=== PATIENT | female | born 1955 | race Caucasian/White ===

== ENCOUNTER 2016-07-16 23:07 | Emergency (ER) | payer BC ==
[2016-07-16 23:16] VITALS: BP 146/70
--- NOTE | 2016-07-16 23:21 | EDM.PDOC ---
ED HPI GENERAL MEDICAL PROBLEM - General Chief Complaint: General Stated Complaint: PT HAS RASH ON STOMACH Time Seen by Provider: 07/16/16 23:18 - History of Present Illness INITIAL COMMENTS - FREE TEXT/NARRATIVE: HISTORY AND PHYSICAL: History of present illness: Patient 7-year-old female presents with a concern of evaluation for recent tick bite in which she has a target lesion where she was bitten with some myalgias she denies fever chills neck pain headache nausea vomiting or other concern. Review of systems: As per history of present illness and below otherwise all systems reviewed and negative. Past medical history: As per history of present illness and as reviewed below otherwise noncontributory. Surgical history: As per history of present illness and as reviewed below otherwise noncontributory. Social history: No reported history of drug or alcohol abuse. Family history: As per history of present illness and as reviewed below otherwise noncontributory. Physical exam: HEENT: Atraumatic, normocephalic, pupils reactive, negative for conjunctival pallor or scleral icterus, mucous membranes moist, throat clear, neck supple, nontender, trachea midline. Lungs: Clear to auscultation, breath sounds equal bilaterally, chest nontender. Heart: S1S2, regular, negative for clicks, rubs, or JVD. Abdomen: Soft, nondistended, nontender. Negative for masses or hepatosplenomegaly. Negative for costovertebral tenderness. Patient has a target type lesion noted to her left flank where the tick was removed. Pelvis: Stable nontender. Genitourinary: Deferred. Rectal: Deferred. Extremities: Atraumatic, negative for cords or calf pain. Neurovascular unremarkable. Neuro: Awake, alert, oriented. Cranial nerves II through XII unremarkable. Cerebellum unremarkable. Motor and sensory unremarkable throughout. Exam nonfocal. Diagnostics: Lyme titer Therapeutics: None Impression: #1 observation status post tick bite #2 rule out Lyme disease Definitive disposition and diagnosis as appropriate pending reevaluation and review of above. - Related Data Allergies Allergy/AdvReac Type Severity Reaction Status Date / Time codeine Allergy Nausea Verified 07/16/16 23:11 morphine Allergy Nausea Verified 07/16/16 23:11 Penicillins Allergy Rash Verified 07/31/15 10:01 Home Meds: Home Meds FLUoxetine HCl [Fluoxetine] 20 mg PO DAILY 07/31/15 [History] Hydrochlorothiazide 25 mg PO DAILY 07/31/15 [History] Levothyroxine [Synthroid] 50 mcg PO ACBREAKFAST 07/31/15 [History] Lisinopril [Zestril] 10 mg PO DAILY 07/31/15 [History] Metoprolol Succinate [Toprol XL] 50 mg PO DAILY 07/31/15 [History] Simvastatin [Zocor] 20 mg PO DAILY 07/31/15 [History] Past Medical History Cardiovascular History: Reports: High Cholesterol, Hypertension Respiratory History: Reports: Other (See Below) Other Respiratory History: pneumonia Psychiatric History: Reports: PTSD Endocrine/Metabolic History: Reports: Hypothyroidism - Past Surgical History Cardiovascular Surgical History: Reports: None Social & Family History - Family History Family Medical History: Noncontributory - Tobacco Use Smoking Status *Q: Never Smoker - Recreational Drug Use Recreational Drug Use: No ED ROS GENERAL - Review of Systems Review Of Systems: ROS reveals no pertinent complaints other than HPI. ED EXAM, GENERAL - Physical Exam Exam: See Below (See dictation) Course - Vital Signs Text/Narrative:: I discussed with patient the nature of the rash as well as her circumstances patient is adamant regarding empiric treatment she does agree to Lyme titers she does agree to follow-up with private medical doctor. Last Recorded V/S: Last Vital Signs Temp 37.4 C 07/16/16 23:13 Pulse 75 07/16/16 23:13 Resp 16 07/16/16 23:13 BP 146/70 H 07/16/16 23:13 Pulse Ox 96 07/16/16 23:13 Departure - Departure Time of Disposition: 23:21 Disposition: Home, Self-Care 01 Condition: good Clinical Impression: Tick bite - Discharge Information Forms: ED Department Discharge Additional Instructions: The following information is given to patients seen in the emergency department who are being discharged to home. This information is to outline your options for follow-up care. We provide all patients seen in our emergency department with a follow-up referral. The need for follow-up, as well as the timing and circumstances, are variable depending upon the specifics of your emergency department visit. If you don't have a primary care physician on staff, we will provide you with a referral. We always advise you to contact your personal physician following an emergency department visit to inform them of the circumstance of the visit and for follow-up with them and/or the need for any referrals to a consulting specialist. The emergency department will also refer you to a specialist when appropriate. This referral assures that you have the opportunity for followup care with a specialist. All of these measure are taken in an effort to provide you with optimal care, which includes your followup. Under all circumstances we always encourage you to contact your private physician who remains a resource for coordinating your care. When calling for followup care, please make the office aware that this follow-up is from your recent emergency room visit. If for any reason you are refused follow-up, please contact the [facility] emergency department at and asked to speak to the emergency department charge nurse. Doxycycline as prescribed follow-up primary medical doctor 1-2 days return as needed as discussed
== END 2016-07-16 23:40 | disposition home or self-care (01) ==
LOC: MW.ED 23:07
DX: S30.861A Insect bite (nonvenomous) of abdominal wall, initial encounter (principal); W57.XXXA Bitten or stung by nonvenomous insect and other nonvenomous arthropods, initial encounter; I10 Essential (primary) hypertension; E78.00 Pure hypercholesterolemia, unspecified; E03.9 Hypothyroidism, unspecified; Z79.899 Other long term (current) drug therapy; Z88.0 Allergy status to penicillin; Z88.5 Allergy status to narcotic agent
CPT/HCPCS: 36415; 86618; 99281; 99282

== ENCOUNTER 2016-10-08 06:27 | Day surgery (SDC) | payer BC ==
--- NOTE | 2016-10-08 06:59 | PCM.PREANE ---
Preanesthetic Assessment - Anesthesia/Transfusion/Family Hx Anesthesia History: Prior Anesthesia Without Reaction Family History of Anesthesia Reaction: No Transfusion History: No Prior Transfusion(s) Intubation History: Unknown - Review of Systems General: No Symptoms Pulmonary: No Symptoms Cardiovascular: No Symptoms Gastrointestinal: No Symptoms Neurological: No Symptoms Other: Reports: None - Physical Assessment Height: 1.68 m Weight: 75.296 kg ASA Class: 3 Mental Status: Alert & Oriented x3 Airway Class: Mallampati = 2 Dentition: Reports: Partial (upper front) Thyro-Mental Finger Breadths: 2 Mouth Opening Finger Breadths: 2 ROM/Head Extension: Full Lungs: Clear to Auscultation, Normal Respiratory Effort Cardiovascular: Regular Rate, Irregular Rhythm (irregularly irregular) - Allergies Allergies/Adverse Reactions: Allergies Allergy/AdvReac Type Severity Reaction Status Date / Time codeine Allergy Nausea Verified 07/16/16 23:11 morphine Allergy Nausea Verified 07/16/16 23:11 Penicillins Allergy Rash Verified 07/31/15 10:01 - Blood Blood Available: No - Anesthesia Plan Pre-Op Medication Ordered: None - Acknowledgements Anesthesia Type Planned: MAC Pt an Appropriate Candidate for the Planned Anesthesia: Yes Alternatives and Risks of Anesthesia Discussed w Pt/Guardian: Yes Pt/Guardian Understands and Agrees with Anesthesia Plan: Yes PreAnesthesia Questionnaire HEENT History: Reports: Other (See Below) Other HEENT History: wears glasses, has top partial Cardiovascular History: Reports: Arrhythmia, High Cholesterol, Hypertension Respiratory History: Genitourinary History: Reports: None 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: Musculoskeletal History: Reports: Osteoporosis Psychiatric History: Reports: Anxiety, Depression, PTSD, Other (See Below) (h/o closed injury about 7 years ago with some memory loss) Endocrine/Metabolic History: Reports: Hypothyroidism - Past Surgical History Head Surgeries/Procedures: Reports: None Cardiovascular Surgical History: Reports: None Female Surgical History: Reports: Breast Biopsy (left breast lumpectomy) Musculoskeletal Surgical History: Reports: Carpal Tunnel (right about 7 years ago), Shoulder Surgery Other Musculoskeletal Surgeries/Procedures:: left rotator cuff repair - SUBSTANCE USE Smoking Status *Q: Never Smoker Recreational Drug Use History: No - HOME MEDS Home Medications: Home Meds FLUoxetine HCl [Fluoxetine] 20 mg PO DAILY 07/31/15 [History] Hydrochlorothiazide 25 mg PO DAILY 06/21/16 [History] Levothyroxine [Synthroid] 50 mcg PO ACBREAKFAST 07/31/15 [History] Metoprolol Succinate [Toprol XL] 50 mg PO DAILY 07/31/15 [History] Simvastatin [Zocor] 20 mg PO BEDTIME 07/31/15 [History] Aspirin [[place] Aspirin] 81 mg PO DAILY 10/01/16 [History] Losartan Potassium 50 mg PO DAILY 10/01/16 [History] - CURRENT (IN HOUSE) MEDS Current Meds: Current Medications Hydrocodone Bitart/Acetaminophen (Whitman 325-5 Mg) 1 tab PO Q4H PRN PRN Reason: Pain Bupivacaine HCl/Epinephrine Bitart (Marcaine 0.25%/Epinephrine 1:200,000) 10 ml INJECT ONETIME ONE Stop: 10/08/16 07:01 Clindamycin Phosphate 600 mg/ (Premix) 50 mls @ 150 mls/hr IV ONETIME ONE Stop: 10/08/16 07:49 Lactated Ringer's (Ringers, Lactated) 1,000 mls @ 125 mls/hr IV ASDIRECTED [facility]
[2016-10-08] MEDS ORDERED: Bupivacaine 0.25%/EPINEPHrine 1:200,000 10 ML SDV INJECT ONE (07:00)
[2016-10-08] MEDS ORDERED: Bupivacaine 0.25%/EPINEPHrine 1:200,000 10 ML SDV ONE (07:10)
[2016-10-08] MEDS ORDERED: Propofol 200 MG/20 ML SDV ONE (07:26)
[2016-10-08] MEDS ORDERED: fentaNYL 100 MCG/2 ML SDV ONE (07:26)
[2016-10-08] MEDS ORDERED: Ondansetron 4 MG/2 ML SDV ONE (07:26)
[2016-10-08] MEDS ORDERED: Midazolam 1 MG/ML 2 ML SDV ONE (07:26)
[2016-10-08] MEDS ORDERED: Dexamethasone 4 MG/ML 5 ML MDV ONE (07:27)
[2016-10-08] MEDS ORDERED: Clindamycin Phosphate in D5W 600 MG in Premix Bag 1 BAG IV ONE ×2 (07:30)
[2016-10-08] MEDS ORDERED: Lactated Ringers 1,000 ML IV SCH (07:30)
[2016-10-08] MEDS ORDERED: Acetaminophen/HYDROcodone 325-5 MG Tab PO PRN (08:29)
[2016-10-08] MEDS ORDERED: ceFAZolin 1 GM Vial ONE (08:52)
--- NOTE | 2016-10-08 09:04 | PCM48HPAN ---
Post Anesthesia Note - EVALUATION WITHIN 48HRS OF ANESTHETIC Vital Signs in Normal Range: Yes Patient Participated in Evaluation: Yes Respiratory Function Stable: Yes Airway Patent: Yes Cardiovascular Function Stable: Yes Hydration Status Stable: Yes Pain Control Satisfactory: Yes Nausea and Vomiting Control Satisfactory: Yes Mental Status Recovered: Yes - COMMENTS/OBSERVATIONS Free Text/Narrative:: no anesthesia problems, patient skipped recovery room phase of postoperative care.
[2016-10-08 09:48] VITALS: BP 116/54
--- NOTE | 2016-10-08 10:50 | PCM.OPNOTE ---
- General Post-Op/Procedure Note Date of Surgery/Procedure: 10/08/16 Operative Procedure(s): left carpal tunnel release Pre Op Diagnosis: left carpal tunnel syndrome Post-Op Diagnosis: Same Anesthesia Technique: Local, MAC Primary Surgeon: Devi Edmonds Title Search Manager: Gavi Fagan Complications: None Condition: Good Free Text/Narrative:: Intake & Output 10/07/16 10/08/16 10/08/16 23:59 07:59 15:59 Intake Total 400 Balance 400
--- NOTE | 2016-10-10 21:01 | OR ---
SURGEON: ÁNGEL RASCON MD DATE OF PROCEDURE: 10/08/2016 PREOPERATIVE DIAGNOSIS: Left carpal tunnel syndrome. POSTOPERATIVE DIAGNOSIS: Left carpal tunnel syndrome. PROCEDURE: Left carpal tunnel release. ANESTHESIA: Local MAC. TEST ENG: Gavi Fagan. INDICATIONS: Ms. Rothman is a 61-year-old female with left carpal tunnel syndrome. Risks and benefits of release were discussed with her and she was in agreement to proceed. Risks were including, but not limited to, bleeding, infection, damage to underlying or overlying structures, possible need for future interventions and possible scarring. PROCEDURE IN DETAIL: After informed consent was obtained and placed on the chart, the patient was brought to the operating theater and laid in the supine position. After adequate local MAC anesthetic was obtained, the area was prepped and draped, a time-out was completed to confirm side and site. Once adequately confirmed, the arm was exsanguinated and tourniquet was inflated to 200 mmHg after injection of local anesthetic. Once adequately prepped, draped, and tourniquet was up, 15 blade was then used to dissect through the transverse carpal ligament and skin overlying using a 15 blade. Once adequately dissected down to the ligament and the ligament was reached. The Littler scissors were used to dissect the remaining ligament distally and proximally under direct visualization. The area was irrigated and closed using a 5-0 nylon stitch in a horizontal mattress fashion. The wound was dressed with Xeroform, fluffs, and a Kerlix gauze dressing and tourniquet was deflated after 6 minutes. All counts and needles were correct at the end the case. The patient was dressed with an Jay Jay wrap. FOLLOWUP INSTRUCTIONS: The patient will see us in clinic in 10 days sooner if any problems, questions, or concerns. She was given a prescription for pain control. HEGGTHE / MODL /[id number]
== END 2016-10-08 09:14 | disposition home or self-care (01) ==
LOC: MW.SDS 06:27
PROVIDERS: ATTEND Plastic Surgery
DX: G56.02 Carpal tunnel syndrome, left upper limb (principal); F32.9 Major depressive disorder, single episode, unspecified; I10 Essential (primary) hypertension; E03.9 Hypothyroidism, unspecified; E78.00 Pure hypercholesterolemia, unspecified; F41.9 Anxiety disorder, unspecified; M81.0 Age-related osteoporosis without current pathological fracture; Z88.0 Allergy status to penicillin; Z88.5 Allergy status to narcotic agent; Z79.82 Long term (current) use of aspirin; Z79.899 Other long term (current) drug therapy; Z98.890 Other specified postprocedural states
CPT/HCPCS: 64721; J0690; J1100; J2250; J2405; J3010; J7120; 01810; J2704

== ENCOUNTER 2017-07-03 06:48 | Emergency (ER) | payer BC ==
[2017-07-03 07:13] VITALS: BP 125/66
--- NOTE | 2017-07-03 07:13 | EDM.PDOC ---
ED HPI GENERAL MEDICAL PROBLEM - General Chief Complaint: Skin Complaint Stated Complaint: RASH Time Seen by Provider: 07/03/17 06:59 - History of Present Illness INITIAL COMMENTS - FREE TEXT/NARRATIVE: HISTORY AND PHYSICAL: History of present illness: The patient is a 62-year-old female with a history of hypertension hypercholesterolemia hypothyroidism who presents to the ED with 4 days of a rash to her for head and she is concerned about. She says that it is itchy and lema but is not specifically painful and it is only located on her for head and no place else on her body. She thought when she woke this morning she might of seen a few areas on her cheeks bilaterally but she is not sure. She has been using [id number]-feooacy hydrocortisone. Patient has no systemic complaints over the last 4 days of fevers chills chest pain shortness of breath sore throat and has no facial swelling no lip or tongue swelling no difficulty swallowing or breathing. Patient expressed to triage that she was concerned about shingles but she tells me she has not noticed any blisters or vesicles to the rash over the last 4 days. Patient has no eye itching complaints of redness or drainage. The patient states that she works at [employer] and touches many objects that are dirty and have a lot of particulate matter and dust. Review of systems: As per history of present illness and below otherwise all systems reviewed and negative. Past medical history: As per history of present illness and as reviewed below otherwise noncontributory. Surgical history: As per history of present illness and as reviewed below otherwise noncontributory. Social history: No reported history of drug or alcohol abuse. Family history: As per history of present illness and as reviewed below otherwise noncontributory. Physical exam: General: Well-developed well-nourished female who is nontoxic and vital signs are as noted. She has no facial swelling difficulty speaking or hoarse voice. HEENT: Atraumatic, normocephalic, pupils reactive, negative for conjunctival pallor or scleral icterus, sclerae are not injected mucous membranes moist, throat clear, neck supple, nontender, trachea midline. There is no lip or tongue swelling or oropharyngeal swelling and no facial swelling. Please see below for skin exam. Lungs: Clear to auscultation, breath sounds equal bilaterally, chest nontender. No wheezing or stridor Heart: S1S2, regular rate and rhythm no overt murmurs Abdomen: Soft, nondistended, nontender. NABS. Pelvis: Deferred Genitourinary: Deferred. Rectal: Deferred. Extremities: Atraumatic, negative for cords or calf pain. Neurovascular unremarkable. Neuro: Awake, alert, oriented. Cranial nerves II through XII unremarkable. Cerebellum unremarkable. Motor and sensory unremarkable throughout. Exam nonfocal. Skin: At the for head bilaterally and a upside down triangle like distribution there is a pinkish red maculopapular rash seen without vesicles or discrete demarcation. This does not extend past the hairline nor the eyebrows. I do notice one or 2 small red macules on the cheeks but there is a different look to this area due to the possibility of lesions. There are no vesicles anywhere on the face and the remainder of the face is without any rash. The neck and upper chest and upper back as well as upper extremities are without rashes and the patient does not complain of rashes elsewhere. Diagnostics: [] Therapeutics: [] I discussed with the patient concerned about shingles and as this is a bilateral for head rash without vesicular component after 4 days I told her it is unlikely that this is shingles but I did caution her to keep monitoring the rash for any appearance of vesicles or change in its character or distribution. Impression: Contact dermatitis of face Definitive disposition and diagnosis as appropriate pending reevaluation and review of above. forehead Pain Score (Numeric/FACES): 2 - Related Data Allergies Allergy/AdvReac Type Severity Reaction Status Date / Time codeine Allergy Nausea Verified 07/03/17 06:55 morphine Allergy Nausea Verified 07/03/17 06:55 Penicillins Allergy Rash Verified 07/03/17 06:55 Home Meds: Home Meds FLUoxetine HCl [Fluoxetine] 20 mg PO DAILY 07/31/15 [History] Hydrochlorothiazide 25 mg PO DAILY 07/31/15 [History] Levothyroxine [Synthroid] 50 mcg PO ACBREAKFAST 07/31/15 [History] Metoprolol Succinate [Toprol XL] 50 mg PO DAILY 07/31/15 [History] Simvastatin [Zocor] 20 mg PO BEDTIME 07/31/15 [History] Aspirin [[place] Aspirin] 81 mg PO DAILY 10/01/16 [History] Losartan Potassium 50 mg PO DAILY 10/01/16 [History] Past Medical History HEENT History: Reports: Other (See Below) Other HEENT History: wears glasses, has top partial Cardiovascular History: Reports: Arrhythmia, High Cholesterol, Hypertension Respiratory History: Reports: None Gastrointestinal History: Reports: None Genitourinary History: Reports: None 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: Musculoskeletal History: Reports: Osteoporosis Neurological History: Reports: None Psychiatric History: Reports: Anxiety, Depression, PTSD, Other (See Below) Endocrine/Metabolic History: Reports: Hypothyroidism Hematologic History: Reports: None Immunologic History: Reports: None Oncologic (Cancer) History: Reports: None Dermatologic History: Reports: None - Infectious Disease History Infectious Disease History: Reports: Chicken Pox - Past Surgical History Head Surgeries/Procedures: Reports: None Cardiovascular Surgical History: Reports: None Respiratory Surgical History: Reports: None GI Surgical History: Reports: None Female Surgical History: Reports: Breast Biopsy Endocrine Surgical History: Reports: None Neurological Surgical History: Reports: None Musculoskeletal Surgical History: Reports: Carpal Tunnel, Shoulder Surgery Other Musculoskeletal Surgeries/Procedures:: left rotator cuff repair Oncologic Surgical History: Reports: None Dermatological Surgical History: Reports: None Social & Family History - Family History Family Medical History: Noncontributory - Tobacco Use Smoking Status *Q: Never Smoker Second Hand Smoke Exposure: No - Caffeine Use Caffeine Use: Reports: Soda - Recreational Drug Use Recreational Drug Use: No ED ROS GENERAL - Review of Systems Review Of Systems: ROS reveals no pertinent complaints other than HPI. ED EXAM, SKIN/RASH Exam: See Below (See dictation) Course - Vital Signs Last Recorded V/S: Last Vital Signs Temp 36.1 C 07/03/17 06:57 Pulse 60 07/03/17 06:57 Resp 18 07/03/17 06:57 BP 125/66 07/03/17 06:57 Pulse Ox 96 07/03/17 06:57 Departure - Departure Time of Disposition: 07:12 Disposition: Home, Self-Care 01 Condition: Good Clinical Impression: Contact dermatitis Qualifiers: Contact dermatitis type: unspecified Contact dermatitis trigger: unspecified trigger Qualified Code(s): L25.9 - Unspecified contact dermatitis, unspecified cause - Discharge Information Referrals: PCP,None [Primary Care Provider] - Additional Instructions: The following information is given to patients seen in the emergency department who are being discharged to home. This information is to outline your options for follow-up care. We provide all patients seen in our emergency department with a follow-up referral. The need for follow-up, as well as the timing and circumstances, are variable depending upon the specifics of your emergency department visit. If you don't have a primary care physician on staff, we will provide you with a referral. We always advise you to contact your personal physician following an emergency department visit to inform them of the circumstance of the visit and for follow-up with them and/or the need for any referrals to a consulting specialist. The emergency department will also refer you to a specialist when appropriate. This referral assures that you have the opportunity for followup care with a specialist. All of these measure are taken in an effort to provide you with optimal care, which includes your followup. Under all circumstances we always encourage you to contact your private physician who remains a resource for coordinating your care. When calling for followup care, please make the office aware that this follow-up is from your recent emergency room visit. If for any reason you are refused follow-up, please contact the [facility] emergency department at and ask to speak to the emergency department charge nurse. [facility] Primary care- Internal Medicine and Family [address] [address] Please cleanse her face with mild soap and water and use the [id number] hydrocortisone as you choose twice a day. Please use [id number] antihistamines such as Lydia, Claritin, or Benadryl keeping in mind that Benadryl may make you drowsy so only take at home. Please use the Medrol Dosepak as prescribed. Please contact her provider in our clinic and schedule a follow-up appointment and continue to monitor the rash and return to ER as needed as discussed
== END 2017-07-03 07:29 | disposition home or self-care (01) ==
LOC: MW.ED 06:48
DX: L25.9 Unspecified contact dermatitis, unspecified cause (principal); I10 Essential (primary) hypertension; E03.9 Hypothyroidism, unspecified; E78.00 Pure hypercholesterolemia, unspecified; Z88.5 Allergy status to narcotic agent; Z88.0 Allergy status to penicillin; Z79.82 Long term (current) use of aspirin; Z79.899 Other long term (current) drug therapy
CPT/HCPCS: 99282

== ENCOUNTER 2018-03-18 08:26 | Emergency (ER) | payer OTHER, BC ==
[2018-03-18 08:47] VITALS: BP 128/55
--- NOTE | 2018-03-18 08:55 | EDM.PDOC ---
ED HPI GENERAL MEDICAL PROBLEM - General Chief Complaint: Back Pain or Injury Stated Complaint: BACK INJURY Time Seen by Provider: 03/18/18 08:34 Source of Information: Reports: Patient History Limitations: Reports: No Limitations - History of Present Illness INITIAL COMMENTS - FREE TEXT/NARRATIVE: History of present illness: []Patient slipped on the ice week ago and hit her right back on the step up to a trailer. She had no loss consciousness and symptoms have improved markedly but she is concerned that she may have a more severe injury. Patient has a bruise on her right flank and states she has some neck stiffness that she states is better now. Denies any numbness or tingling, urinary incontinence, chest pain, shortness of breath or headache. Review of systems: As per history of present illness and below otherwise all systems reviewed and negative. Past medical history: As per history of present illness and as reviewed below otherwise noncontributory. Surgical history: As per history of present illness and as reviewed below otherwise noncontributory. Social history: No reported history of drug or alcohol abuse. Family history: As per history of present illness and as reviewed below otherwise noncontributory. Physical exam: General: Well developed, well nourished in NAD HEENT: Atraumatic, normocephalic, pupils reactive, negative for conjunctival pallor or scleral icterus, mucous membranes moist, throat clear, neck supple, nontender, trachea midline. Lungs: Clear to auscultation, breath sounds equal bilaterally, chest nontender. Heart: S1S2, regular, negative for clicks, rubs, or JVD. Abdomen: NABS, Soft, nondistended, nontender. Negative for masses or hepatosplenomegaly. Negative for costovertebral tenderness. Ecchymosis of her right flank Pelvis: Stable nontender. Genitourinary: Deferred. Rectal: Deferred. Extremities: Atraumatic, negative for cords or calf pain. Neurovascular unremarkable. Neuro: Awake, alert, oriented. Cranial nerves II through XII unremarkable. Cerebellum unremarkable. Motor and sensory unremarkable throughout. Exam nonfocal. Skin:warm and dry Diagnostics: UA negative for blood Therapeutics: Declined ED Course: Unremarkable Impression: Fall, flank contusion, cervical strain Prescriptions: None Plan: Tylenol or ibuprofen for pain follow-up primary care as needed Definitive disposition and diagnosis as appropriate pending reevaluation and review of above. Right Middle Back Pain Score (Numeric/FACES): 6 - Related Data Allergies Allergy/AdvReac Type Severity Reaction Status Date / Time codeine Allergy Nausea Verified 03/18/18 08:36 morphine Allergy Nausea Verified 03/18/18 08:36 Penicillins Allergy Rash Verified 03/18/18 08:36 Home Meds: Home Meds FLUoxetine HCl [Fluoxetine] 1 tab PO DAILY 07/31/15 [History] Hydrochlorothiazide 1 tab PO DAILY 07/31/15 [History] Levothyroxine [Synthroid] 1 tab PO ACBREAKFAST 07/31/15 [History] Metoprolol Succinate [Toprol XL] 1 tab PO DAILY 07/31/15 [History] Simvastatin [Zocor] 1 tab PO BEDTIME 07/31/15 [History] Aspirin [[place] Aspirin EC] 1 tab PO DAILY 10/01/16 [History] Losartan Potassium 1 tab PO DAILY 10/01/16 [History] Past Medical History HEENT History: Reports: Other (See Below) Other HEENT History: wears glasses, Full Dentures Cardiovascular History: Reports: Arrhythmia, High Cholesterol, Hypertension Respiratory History: Reports: None Gastrointestinal History: Reports: None Genitourinary History: Reports: None 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: Musculoskeletal History: Reports: Osteoporosis Neurological History: Reports: None Psychiatric History: Reports: Anxiety, Depression, PTSD, Other (See Below) Endocrine/Metabolic History: Reports: Hypothyroidism Hematologic History: Reports: None Immunologic History: Reports: None Oncologic (Cancer) History: Reports: None Dermatologic History: Reports: None - Infectious Disease History Infectious Disease History: Reports: Chicken Pox, Measles, Mumps - Past Surgical History Head Surgeries/Procedures: Reports: None Cardiovascular Surgical History: Reports: None Respiratory Surgical History: Reports: None GI Surgical History: Reports: None Female Surgical History: Reports: Breast Biopsy Endocrine Surgical History: Reports: None Neurological Surgical History: Reports: None Musculoskeletal Surgical History: Reports: Carpal Tunnel, Shoulder Surgery Other Musculoskeletal Surgeries/Procedures:: left rotator cuff repair Oncologic Surgical History: Reports: None Dermatological Surgical History: Reports: None Social & Family History - Family History Family Medical History: Noncontributory - Tobacco Use Smoking Status *Q: Never Smoker Second Hand Smoke Exposure: Yes - Caffeine Use Caffeine Use: Reports: Soda, Tea - Recreational Drug Use Recreational Drug Use: No ED ROS GENERAL - Review of Systems Review Of Systems: ROS reveals no pertinent complaints other than HPI. ED EXAM,LOWER BACK PAIN/INJURY - Physical Exam Exam: See Below (See history of present illness) Course - Vital Signs Last Recorded V/S: Last Vital Signs Temp 97.1 F 03/18/18 08:39 Pulse 64 03/18/18 08:39 Resp 14 03/18/18 08:39 BP 128/55 L 03/18/18 08:39 Pulse Ox 97 03/18/18 08:39 - Orders/Labs/Meds Labs: Laboratory Tests 03/18/18 Range/Units 08:50 Urine Color YELLOW Urine Appearance CLEAR Urine pH 5.0 (5.0-8.0) Ur Specific [place] 1.010 (1.001-1.035) Urine Protein NEGATIVE (NEGATIVE) mg/dL Urine Glucose (UA) NEGATIVE (NEGATIVE) mg/dL Urine Ketones NEGATIVE (NEGATIVE) mg/dL Urine Occult Blood NEGATIVE (NEGATIVE) Urine Nitrite NEGATIVE (NEGATIVE) Urine Bilirubin NEGATIVE (NEGATIVE) Urine Urobilinogen 0.2 (<2.0) EU/dL Ur Leukocyte Esterase NEGATIVE (NEGATIVE) Urine RBC NONE SEEN (0-2/HPF) Urine WBC RARE (0-5/HPF) Ur Epithelial Cells FEW (NONE-FEW) Urine Bacteria FEW (NEGATIVE) Departure - Departure Time of Disposition: 09:42 Disposition: Home, Self-Care 01 Condition: Good Clinical Impression: Fall Qualifiers: Encounter type: initial encounter Qualified Code(s): W19.XXXA - Unspecified fall, initial encounter Contusion, flank Qualifiers: Encounter type: initial encounter Qualified Code(s): S30.1XXA - Contusion of abdominal wall, initial encounter Cervical muscle strain Qualifiers: Encounter type: initial encounter Qualified Code(s): S16.1XXA - Strain of muscle, fascia and tendon at neck level, initial encounter - Discharge Information *PRESCRIPTION DRUG MONITORING PROGRAM REVIEWED*: No *COPY OF PRESCRIPTION DRUG MONITORING REPORT IN PATIENT ANUSHA: No Referrals: PCP,Unknown [Primary Care Provider] - Forms: ED Department Discharge Additional Instructions: The following information is given to patients seen in the emergency department who are being discharged to home. This information is to outline your options for follow-up care. We provide all patients seen in our emergency department with a follow-up referral. The need for follow-up, as well as the timing and circumstances, are variable depending upon the specifics of your emergency department visit. If you don't have a primary care physician on staff, we will provide you with a referral. We always advise you to contact your personal physician following an emergency department visit to inform them of the circumstance of the visit and for follow-up with them and/or the need for any referrals to a consulting specialist. The emergency department will also refer you to a specialist when appropriate. This referral assures that you have the opportunity for follow-up care with a specialist. All of these measure are taken in an effort to provide you with optimal care, which includes your follow-up. Under all circumstances we always encourage you to contact your private physician who remains a resource for coordinating your care. When calling for follow-up care, please make the office aware that this follow-up is from your recent emergency room visit. If for any reason you are refused follow-up, please contact the [facility] Emergency Department at and asked to speak to the emergency department charge nurse. [facility] [address] [place] [id number]
== END 2018-03-18 09:54 | disposition home or self-care (01) ==
LOC: MW.ED 08:26
DX: S16.1XXA Strain of muscle, fascia and tendon at neck level, initial encounter (principal); S30.1XXA Contusion of abdominal wall, initial encounter; I10 Essential (primary) hypertension; E78.00 Pure hypercholesterolemia, unspecified; F41.9 Anxiety disorder, unspecified; F32.9 Major depressive disorder, single episode, unspecified; Z79.82 Long term (current) use of aspirin; Z79.899 Other long term (current) drug therapy; Z88.5 Allergy status to narcotic agent; Z88.0 Allergy status to penicillin; W00.0XXA Fall on same level due to ice and snow, initial encounter
CPT/HCPCS: 81001; 99283

== ENCOUNTER 2018-10-11 07:04 | Observation (INO) | payer BC ==
[2018-10-11] MEDS: Sodium Chloride 0.9% 1,000 ML IV SCH ×3 (07:33→22:00)
--- NOTE | 2018-10-11 07:49 | EDM.PDOC ---
ED HPI GENERAL MEDICAL PROBLEM - General Chief Complaint: General Stated Complaint: PASSING OUT Time Seen by Provider: 10/11/18 07:20 - History of Present Illness INITIAL COMMENTS - FREE TEXT/NARRATIVE: HISTORY AND PHYSICAL: History of present illness: Patient's a 63-year-old white female history of hypertension who presents with a concern of near syncope she had multiple episodes this a.m. while she was at work she describes this as her vision becoming more "tunnel like" and that if she did grab something to support her so she would've passed out. She denies chest pain shortness breath diaphoresis nausea vomiting or palpitation she denies history of prior OK or CVA and states she is in generally good health she had one episode in the emergency department upon arrival Review of systems: As per history of present illness and below otherwise all systems reviewed and negative. Past medical history: As per history of present illness and as reviewed below otherwise noncontributory. Surgical history: As per history of present illness and as reviewed below otherwise noncontributory. Social history: No reported history of drug or alcohol abuse. Family history: As per history of present illness and as reviewed below otherwise noncontributory. Physical exam: HEENT: Atraumatic, normocephalic, pupils reactive, negative for conjunctival pallor or scleral icterus, mucous membranes moist, throat clear, neck supple, nontender, trachea midline. Lungs: Clear to auscultation, breath sounds equal bilaterally, chest nontender. Heart: S1S2, regular, negative for clicks, rubs, or JVD. Abdomen: Soft, nondistended, nontender. Negative for masses or hepatosplenomegaly. Negative for costovertebral tenderness. Pelvis: Stable nontender. Genitourinary: Deferred. Rectal: Deferred. Extremities: Atraumatic, negative for cords or calf pain. Neurovascular unremarkable. Neuro: Awake, alert, oriented. Cranial nerves II through XII unremarkable. Cerebellum unremarkable. Motor and sensory unremarkable throughout. Exam nonfocal. Diagnostics: CBC CMP troponin PT/INR chest x-ray EKG CT brain Therapeutics: IV O2 monitor Impression: #1 near syncope Definitive disposition and diagnosis as appropriate pending reevaluation and review of above. left foot Pain Score (Numeric/FACES): 4 - Related Data Allergies Allergy/AdvReac Type Severity Reaction Status Date / Time codeine Allergy Nausea Verified 03/18/18 08:36 morphine Allergy Nausea Verified 03/18/18 08:36 Penicillins Allergy Rash Verified 03/18/18 08:36 Home Meds: Home Meds FLUoxetine HCl [Fluoxetine] 1 tab PO DAILY 07/31/15 [History] Hydrochlorothiazide 1 tab PO DAILY 07/31/15 [History] Levothyroxine [Synthroid] 1 tab PO ACBREAKFAST 07/31/15 [History] Metoprolol Succinate [Toprol XL] 1 tab PO DAILY 07/31/15 [History] Simvastatin [Zocor] 1 tab PO BEDTIME 07/31/15 [History] Aspirin [[place] Aspirin EC] 1 tab PO DAILY 10/01/16 [History] Losartan Potassium 1 tab PO DAILY 10/01/16 [History] Past Medical History HEENT History: Reports: Other (See Below) Other HEENT History: wears glasses, Full Dentures Cardiovascular History: Reports: Arrhythmia, High Cholesterol, Hypertension Respiratory History: Reports: None Gastrointestinal History: Reports: None Genitourinary History: Reports: None [employer]IAN History: Reports: Musculoskeletal History: Reports: Osteoporosis Neurological History: Reports: None Psychiatric History: Reports: Anxiety, Depression, PTSD, Other (See Below) Endocrine/Metabolic History: Reports: Hypothyroidism Hematologic History: Reports: None Immunologic History: Reports: None Oncologic (Cancer) History: Reports: None Dermatologic History: Reports: None - Infectious Disease History Infectious Disease History: Reports: Chicken Pox - Past Surgical History Head Surgeries/Procedures: Reports: None Cardiovascular Surgical History: Reports: None Respiratory Surgical History: Reports: None GI Surgical History: Reports: None Female Surgical History: Reports: Breast Biopsy Endocrine Surgical History: Reports: None Neurological Surgical History: Reports: None Musculoskeletal Surgical History: Reports: Carpal Tunnel, Shoulder Surgery Other Musculoskeletal Surgeries/Procedures:: left rotator cuff repair Oncologic Surgical History: Reports: None Dermatological Surgical History: Reports: None Social & Family History - Family History Family Medical History: Noncontributory - Tobacco Use Smoking Status *Q: Never Smoker - Caffeine Use Caffeine Use: Reports: Soda, Tea - Recreational Drug Use Recreational Drug Use: No ED ROS GENERAL - Review of Systems Review Of Systems: ROS reveals no pertinent complaints other than HPI. ED EXAM, GENERAL - Physical Exam Exam: See Below (See dictation) Course - Vital Signs Last Recorded V/S: Last Vital Signs Temp 35.8 C 09/02/19 07:08 Pulse 55 L 10/11/18 08:14 Resp 15 10/11/18 08:14 BP 130/76 10/11/18 08:14 Pulse Ox 97 10/11/18 08:14 - Orders/Labs/Meds Orders: Active Orders 24 hr Category Date Time Status Cardiac Monitoring [RC] . DIRECTED Care 10/11/18 07:21 Active EKG Documentation Completion [RC] STAT Care 10/11/18 07:21 Active Pulse Oximetry [RC] ASDIRECTED Care 10/11/18 07:21 Active Head wo Cont [CT] Stat Exams 10/11/18 07:22 Taken Sodium Chloride 0.9% [Normal Saline] 1,000 ml Med 10/11/18 07:30 Active IV STAT Medication Orders Sodium Chloride (Normal Saline) 1,000 mls @ 125 mls/hr IV STAT JOANNA Last Admin: 10/11/18 07:33 Dose: 125 mls/hr Labs: Laboratory Tests 10/11/18 10/11/18 10/11/18 Range/Units 07:30 07:30 07:30 WBC 3.37 L (4.0-11.0) K/uL RBC 4.28 L (4.30-5.90) M/uL Hgb 12.3 (12.0-16.0) g/dL Hct 37.0 (36.0-46.0) % MCV 86.4 (80.0-98.0) fL MCH 28.7 (27.0-32.0) pg MCHC 33.2 (31.0-37.0) g/dL RDW Std Deviation 43.2 (28.0-62.0) fl RDW Coeff of Ezra 14 (11.0-15.0) % Plt Count 246 (150-400) K/uL MPV 10.30 (7.40-12.00) fL Neut % (Auto) 52.5 (48.0-80.0) % Lymph % (Auto) 31.8 (16.0-40.0) % [place] % (Auto) 10.4 (0.0-15.0) % Eos % (Auto) 4.7 (0.0-7.0) % Baso % (Auto) 0.6 (0.0-1.5) % Neut # (Auto) 1.8 (1.4-5.7) K/uL Lymph # (Auto) 1.1 (0.6-2.4) K/uL [place] # (Auto) 0.4 (0.0-0.8) K/uL Eos # (Auto) 0.2 (0.0-0.7) K/uL Baso # (Auto) 0.0 (0.0-0.1) K/uL Nucleated RBC % 0.0 /100WBC Nucleated RBCs # 0 K/uL INR 0.92 Sodium 140 (136-145) mmol/L Potassium 3.4 L (3.5-5.1) mmol/L Chloride 101 (98-107) mmol/L Carbon Dioxide 28.8 (21.0-32.0) mmol/L BUN 12 (7.0-18.0) mg/dL Creatinine 0.7 (0.6-1.0) mg/dL Est Cr Clr Drug Dosing 78.01 mL/min Estimated GFR (MDRD) > 60.0 ml/min Glucose 88 (74-106) mg/dL Calcium 9.2 (8.5-10.1) mg/dL Total Bilirubin 0.4 (0.2-1.0) mg/dL AST 15 (15-37) IU/L ALT 20 (14-63) IU/L Alkaline Phosphatase 86 (46-116) U/L Troponin I < 0.050 (0.000-0.056) ng/mL Total Protein 6.9 (6.4-8.2) g/dL Albumin 3.6 (3.4-5.0) g/dL Globulin 3.3 (2.6-4.0) g/dL Albumin/Globulin Ratio 1.1 (0.9-1.6) Urine Color Urine Appearance Urine pH (5.0-8.0) Ur Specific [place] (1.001-1.035) Urine Protein (NEGATIVE) mg/dL Urine Glucose (UA) (NEGATIVE) mg/dL Urine Ketones (NEGATIVE) mg/dL Urine Occult Blood (NEGATIVE) Urine Nitrite (NEGATIVE) Urine Bilirubin (NEGATIVE) Urine Urobilinogen (<2.0) EU/dL Ur Leukocyte Esterase (NEGATIVE) 10/11/18 Range/Units 07:35 WBC (4.0-11.0) K/uL RBC (4.30-5.90) M/uL Hgb (12.0-16.0) g/dL Hct (36.0-46.0) % MCV (80.0-98.0) fL MCH (27.0-32.0) pg MCHC (31.0-37.0) g/dL RDW Std Deviation (28.0-62.0) fl RDW Coeff of Ezra (11.0-15.0) % Plt Count (150-400) K/uL MPV (7.40-12.00) fL Neut % (Auto) (48.0-80.0) % Lymph % (Auto) (16.0-40.0) % [place] % (Auto) (0.0-15.0) % Eos % (Auto) (0.0-7.0) % Baso % (Auto) (0.0-1.5) % Neut # (Auto) (1.4-5.7) K/uL Lymph # (Auto) (0.6-2.4) K/uL [place] # (Auto) (0.0-0.8) K/uL Eos # (Auto) (0.0-0.7) K/uL Baso # (Auto) (0.0-0.1) K/uL Nucleated RBC % /100WBC Nucleated RBCs # K/uL INR Sodium (136-145) mmol/L Potassium (3.5-5.1) mmol/L Chloride (98-107) mmol/L Carbon Dioxide (21.0-32.0) mmol/L BUN (7.0-18.0) mg/dL Creatinine (0.6-1.0) mg/dL Est Cr Clr Drug Dosing mL/min Estimated GFR (MDRD) ml/min Glucose (74-106) mg/dL Calcium (8.5-10.1) mg/dL Total Bilirubin (0.2-1.0) mg/dL AST (15-37) IU/L ALT (14-63) IU/L Alkaline Phosphatase (46-116) U/L Troponin I (0.000-0.056) ng/mL Total Protein (6.4-8.2) g/dL Albumin (3.4-5.0) g/dL Globulin (2.6-4.0) g/dL Albumin/Globulin Ratio (0.9-1.6) Urine Color YELLOW Urine Appearance CLEAR Urine pH 5.0 (5.0-8.0) Ur Specific [place] 1.015 (1.001-1.035) Urine Protein NEGATIVE (NEGATIVE) mg/dL Urine Glucose (UA) NEGATIVE (NEGATIVE) mg/dL Urine Ketones NEGATIVE (NEGATIVE) mg/dL Urine Occult Blood NEGATIVE (NEGATIVE) Urine Nitrite NEGATIVE (NEGATIVE) Urine Bilirubin NEGATIVE (NEGATIVE) Urine Urobilinogen 0.2 (<2.0) EU/dL Ur Leukocyte Esterase NEGATIVE (NEGATIVE) Meds: Medications Generic Name Dose Route Start Last Admin Trade Name Freq PRN Reason Stop Dose Admin Sodium Chloride 1,000 mls @ 125 mls/hr 10/11/18 07:30 10/11/18 07:33 Normal Saline IV 125 mls/hr STAT JOANNA Administration Departure - Departure Time of Disposition: 08:17 Disposition: Refer to Observation Condition: Good Clinical Impression: Near syncope, History of hypertension - Discharge Information Referrals: Vj Dial MD [Primary Care Provider] - Forms: ED Department Discharge - My Orders Last 24 Hours: My Active Orders 10/11/18 07:21 Cardiac Monitoring [RC] . DIRECTED EKG Documentation Completion [RC] STAT Pulse Oximetry [RC] ASDIRECTED 10/11/18 07:22 Head wo Cont [CT] Stat 10/11/18 07:30 Sodium Chloride 0.9% [Normal Saline] 1,000 ml IV STAT - Assessment/Plan Last 24 Hours: My Active Orders 10/11/18 07:21 Cardiac Monitoring [RC] . DIRECTED EKG Documentation Completion [RC] STAT Pulse Oximetry [RC] ASDIRECTED 10/11/18 07:22 Head wo Cont [CT] Stat 10/11/18 07:30 Sodium Chloride 0.9% [Normal Saline] 1,000 ml IV STAT
[2018-10-11 07:57] LABS: BLOOD UREA NITROGEN,BUN 12 mg/dL (7.0-18.0); CARBON DIOXIDE,CO2 28.8 mmol/L (21.0-32.0); CHLORIDE,CL 101 mmol/L (98-107); GLUCOSE RANDOM 88 mg/dL (74-106); POTASSIUM,K 3.4 mmol/L (3.5-5.1); SODIUM,NA 140 mmol/L (136-145)
--- NOTE | 2018-10-11 08:00 | CR ---
Indication: Syncope Technique: Portable AP chest radiograph Comparison: 10/23/2015 Findings: Unchanged apex right scoliosis at the mid thoracic spine. There are no acute osseous abnormalities. Stable heart and mediastinum. Clear lungs and pleural spaces. Impression: No acute findings in the chest. Unchanged apex right scoliosis mid thoracic spine. Dictated by Manohar Porter MD @ Oct 11 2018 7:58AM Signed by Dr. Manohar Porter @ Oct 11 2018 7:59AM
--- NOTE | 2018-10-11 08:30 | CT ---
INDICATION: Passed out. TECHNIQUE: Noncontrast CT images were obtained through the brain. COMPARISON: None. FINDINGS: The ventricles and sulci are within normal limits for patient age. No mass effect or midline shift. The marcelino-white differentiation is maintained. No acute intracranial hemorrhage or pathologic extra-axial fluid collection. Atherosclerotic calcifications in the intracranial internal carotid and left vertebral arteries. The globes are symmetric in size. The calvarium is intact. The visualized paranasal sinuses and mastoid air cells are clear. IMPRESSION: No acute intracranial hemorrhage or mass effect. Please note that all CT scans at this facility use dose modulation, iterative reconstruction, and/or weight-based dosing when appropriate to reduce radiation dose to as low as reasonably achievable. Dictated by Jose Angel Chávez MD @ Oct 11 2018 8:26AM Signed by Dr. Jose Angel Chávez @ Oct 11 2018 8:29AM
--- NOTE | 2018-10-11 09:22 | PCM.HP.2 ---
H&P History of Present Illness - General Date of Service: 10/11/18 Admit Problem/Dx: Admission Diagnosis/Problem Admission Diagnosis/Problem Near syncope Source of Information: Patient, Family - History of Present Illness Initial Comments - Free Text/Narative: Patient is a 63-year-old female presenting today with 5 discrete near syncopal episodes; states while she was at work she felt the room going dark;had to hold onto something to reverse the "tunnel-vision" feeling; happened 4 -more times before going home from work; proceeded to ED w/ fiancee afterwards; did not endorse any accompanying symptoms including chest pain, shortness of breath, headache, vertigo, dizziness, or confusion. States she had to hold on to something to relieve the tunnel vision sensation. States having episodes like this before in the past; the last episode being 4 months ago. Otherwise is not complaining of any discomfort, dizziness, room going dark sensation currently. Patient does mention to me having not eaten any significant meal in the past 2- 3 days; states her last full meal was yesterday morning; which was some coffee and some light snacks. in the room endorses does not eat much or very often despite being told to do so. Patient also denies any fevers, chills, body aches, chest pain, shortness of breath, diarrhea, constipation. States left foot there is a bump; mildly tender; atraumatic; hurts only when touched. Patient otherwise states that she has been compliant with her medications and does not have a history of diabetes. left foot Pain Score (Numeric/FACES): 4 - Related Data Allergies/Adverse Reactions: Allergies Allergy/AdvReac Type Severity Reaction Status Date / Time codeine Allergy Nausea Verified 10/11/18 09:30 morphine Allergy Nausea Verified 10/11/18 09:30 Penicillins Allergy Rash Verified 10/11/18 09:30 Home Medications: Home Meds FLUoxetine HCl [Fluoxetine] 10 mg PO DAILY 07/31/15 [History] Hydrochlorothiazide 25 mg PO DAILY 07/31/15 [History] Levothyroxine [Synthroid] 50 mcg PO ACBREAKFAST 07/31/15 [History] Metoprolol Succinate [Toprol XL] 50 mg PO DAILY 07/31/15 [History] Simvastatin [Zocor] 20 mg PO BEDTIME 07/31/15 [History] Aspirin [[place] Aspirin EC] 81 mg PO DAILY 10/01/16 [History] Losartan Potassium 50 mg PO DAILY 10/01/16 [History] Past Medical History HEENT History: Reports: Other (See Below) Other HEENT History: wears glasses, Full Dentures Cardiovascular History: Reports: Arrhythmia, High Cholesterol, Hypertension Respiratory History: Reports: None Gastrointestinal History: Reports: None Genitourinary History: Reports: None [employer] History: Reports: Musculoskeletal History: Reports: Osteoporosis Neurological History: Reports: None Psychiatric History: Reports: Anxiety, Depression, PTSD, Other (See Below) Endocrine/Metabolic History: Reports: Hypothyroidism Hematologic History: Reports: None Immunologic History: Reports: None Oncologic (Cancer) History: Reports: None Dermatologic History: Reports: None - Infectious Disease History Infectious Disease History: Reports: Chicken Pox - Past Surgical History Head Surgeries/Procedures: Reports: None Cardiovascular Surgical History: Reports: None Respiratory Surgical History: Reports: None GI Surgical History: Reports: None Female Surgical History: Reports: Breast Biopsy Endocrine Surgical History: Reports: None Neurological Surgical History: Reports: None Musculoskeletal Surgical History: Reports: Carpal Tunnel, Shoulder Surgery Other Musculoskeletal Surgeries/Procedures:: left rotator cuff repair Oncologic Surgical History: Reports: None Dermatological Surgical History: Reports: None Social & Family History - Family History Family Medical History: Noncontributory - Tobacco Use Smoking Status *Q: Never Smoker - Caffeine Use Caffeine Use: Reports: Soda, Tea - Recreational Drug Use Recreational Drug Use: No H&P Review of Systems - Review of Systems: Review Of Systems: See Below General: Reports: No Symptoms HEENT: Reports: No Symptoms Pulmonary: Reports: No Symptoms Cardiovascular: Reports: No Symptoms Gastrointestinal: Reports: No Symptoms Genitourinary: Reports: No Symptoms Musculoskeletal: Reports: No Symptoms Skin: Reports: No Symptoms Psychiatric: Reports: No Symptoms Neurological: Reports: No Symptoms (Left foot bump; mildly tender; does not affect ambulation.) Exam - Exam Exam: See Below - Vital Signs Vital Signs: Last Vital Signs Temp 96.4 F 10/11/18 07:08 Pulse 55 L 10/11/18 08:14 Resp 15 10/11/18 08:14 BP 130/76 10/11/18 08:14 Pulse Ox 97 10/11/18 08:14 Weight: 161 lb - Exam General: Alert, Oriented, Cooperative HEENT: Conjunctiva Clear, EOMI (No nystagmus), Hearing Intact Neck: Supple, Trachea Midline Lungs: Clear to Auscultation, Normal Respiratory Effort Cardiovascular: Regular Rhythm, Bradycardia GI/Abdominal Exam: Normal Bowel Sounds, Soft, Non-Tender Extremities: Normal Range of Motion, Other (Left foot: Dorsal aspect; 2 x 2 centimeter tender non-ecchymotic , nonerythematous. Lump.) Skin: Warm, Dry, Intact Neurological: Cranial Nerves Intact, Reflexes Equal Bilateral, Strength Equal Bilateral, Normal Gait, Normal Speech, Sensation Intact Neuro Extensive - Mental Status: Alert, Oriented x3, Normal Mood/Affect, Normal Cognition, Memory Intact, Other (Negative pronator drift; ). No: Disorientation to Person - Patient Data Lab Results Last 24 hrs: Laboratory Results - last 24 hr 10/11/18 10/11/18 10/11/18 Range/Units 07:30 07:30 07:30 WBC 3.37 L (4.0-11.0) K/uL RBC 4.28 L (4.30-5.90) M/uL Hgb 12.3 (12.0-16.0) g/dL Hct 37.0 (36.0-46.0) % MCV 86.4 (80.0-98.0) fL MCH 28.7 (27.0-32.0) pg MCHC 33.2 (31.0-37.0) g/dL RDW Std Deviation 43.2 (28.0-62.0) fl RDW Coeff of Ezra 14 (11.0-15.0) % Plt Count 246 (150-400) K/uL MPV 10.30 (7.40-12.00) fL Neut % (Auto) 52.5 (48.0-80.0) % Lymph % (Auto) 31.8 (16.0-40.0) % [place] % (Auto) 10.4 (0.0-15.0) % Eos % (Auto) 4.7 (0.0-7.0) % Baso % (Auto) 0.6 (0.0-1.5) % Neut # (Auto) 1.8 (1.4-5.7) K/uL Lymph # (Auto) 1.1 (0.6-2.4) K/uL [place] # (Auto) 0.4 (0.0-0.8) K/uL Eos # (Auto) 0.2 (0.0-0.7) K/uL Baso # (Auto) 0.0 (0.0-0.1) K/uL Nucleated RBC % 0.0 /100WBC Nucleated RBCs # 0 K/uL INR 0.92 Sodium 140 (136-145) mmol/L Potassium 3.4 L (3.5-5.1) mmol/L Chloride 101 (98-107) mmol/L Carbon Dioxide 28.8 (21.0-32.0) mmol/L BUN 12 (7.0-18.0) mg/dL Creatinine 0.7 (0.6-1.0) mg/dL Est Cr Clr Drug Dosing 78.01 mL/min Estimated GFR (MDRD) > 60.0 ml/min Glucose 88 (74-106) mg/dL Calcium 9.2 (8.5-10.1) mg/dL Total Bilirubin 0.4 (0.2-1.0) mg/dL AST 15 (15-37) IU/L ALT 20 (14-63) IU/L Alkaline Phosphatase 86 (46-116) U/L Troponin I < 0.050 (0.000-0.056) ng/mL Total Protein 6.9 (6.4-8.2) g/dL Albumin 3.6 (3.4-5.0) g/dL Globulin 3.3 (2.6-4.0) g/dL Albumin/Globulin Ratio 1.1 (0.9-1.6) Urine Color Urine Appearance Urine pH (5.0-8.0) Ur Specific [place] (1.001-1.035) Urine Protein (NEGATIVE) mg/dL Urine Glucose (UA) (NEGATIVE) mg/dL Urine Ketones (NEGATIVE) mg/dL Urine Occult Blood (NEGATIVE) Urine Nitrite (NEGATIVE) Urine Bilirubin (NEGATIVE) Urine Urobilinogen (<2.0) EU/dL Ur Leukocyte Esterase (NEGATIVE) 10/11/18 Range/Units 07:35 WBC (4.0-11.0) K/uL RBC (4.30-5.90) M/uL Hgb (12.0-16.0) g/dL Hct (36.0-46.0) % MCV (80.0-98.0) fL MCH (27.0-32.0) pg MCHC (31.0-37.0) g/dL RDW Std Deviation (28.0-62.0) fl RDW Coeff of Ezra (11.0-15.0) % Plt Count (150-400) K/uL MPV (7.40-12.00) fL Neut % (Auto) (48.0-80.0) % Lymph % (Auto) (16.0-40.0) % [place] % (Auto) (0.0-15.0) % Eos % (Auto) (0.0-7.0) % Baso % (Auto) (0.0-1.5) % Neut # (Auto) (1.4-5.7) K/uL Lymph # (Auto) (0.6-2.4) K/uL [place] # (Auto) (0.0-0.8) K/uL Eos # (Auto) (0.0-0.7) K/uL Baso # (Auto) (0.0-0.1) K/uL Nucleated RBC % /100WBC Nucleated RBCs # K/uL INR Sodium (136-145) mmol/L Potassium (3.5-5.1) mmol/L Chloride (98-107) mmol/L Carbon Dioxide (21.0-32.0) mmol/L BUN (7.0-18.0) mg/dL Creatinine (0.6-1.0) mg/dL Est Cr Clr Drug Dosing mL/min Estimated GFR (MDRD) ml/min Glucose (74-106) mg/dL Calcium (8.5-10.1) mg/dL Total Bilirubin (0.2-1.0) mg/dL AST (15-37) IU/L ALT (14-63) IU/L Alkaline Phosphatase (46-116) U/L Troponin I (0.000-0.056) ng/mL Total Protein (6.4-8.2) g/dL Albumin (3.4-5.0) g/dL Globulin (2.6-4.0) g/dL Albumin/Globulin Ratio (0.9-1.6) Urine Color YELLOW Urine Appearance CLEAR Urine pH 5.0 (5.0-8.0) Ur Specific [place] 1.015 (1.001-1.035) Urine Protein NEGATIVE (NEGATIVE) mg/dL Urine Glucose (UA) NEGATIVE (NEGATIVE) mg/dL Urine Ketones NEGATIVE (NEGATIVE) mg/dL Urine Occult Blood NEGATIVE (NEGATIVE) Urine Nitrite NEGATIVE (NEGATIVE) Urine Bilirubin NEGATIVE (NEGATIVE) Urine Urobilinogen 0.2 (<2.0) EU/dL Ur Leukocyte Esterase NEGATIVE (NEGATIVE) Result Diagrams: 10/11/18 07:30 10/11/18 07:30 Problem List Initiated/Reviewed/Updated: Yes Orders Last 24hrs: Active Orders 24 hr Category Date Time Status Patient Status [ADT] Stat ADT 10/11/18 08:17 Active Cardiac Monitoring [RC] . DIRECTED Care 10/11/18 07:21 Active EKG Documentation Completion [RC] STAT Care 10/11/18 07:21 Active Pulse Oximetry [RC] ASDIRECTED Care 10/11/18 07:21 Active Telemetry Monitoring [Cardiac Monitoring] [RC] . Care 10/11/18 08:32 Active DIRECTED Sodium Chloride 0.9% [Normal Saline] 1,000 ml Med 10/11/18 07:30 Active IV STAT Medication Orders Sodium Chloride (Normal Saline) 1,000 mls @ 125 mls/hr IV STAT JOANNA Last Admin: 10/11/18 07:33 Dose: 125 mls/hr Assessment/Plan Comment:: Assessment: 1. Near syncopal episodes possibly secondary to bradycardia versus hypoglycemia versus vasovagal. 2. 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 Past medical history: Hypertension, hypothyroidism, dysrhythmia, depression/ anxiety, osteoporosis Plan: 1. Admit observation. Full code. Diet: Heart healthy. Intake outtake:routine. Vitals per routine. DVT prophylaxis: SCDs 2. Head CT: Negative, chest x-ray: Negative. EKG: No acute dysrhythmias. Previous echo 2016: Ejection fraction 60-65% Order repeat echo Orthostatic vital signs Accu-Chek 3 times a day with meals Telemetry: The patient continued to be bradycardic :consider interventions including reducing beta ama dosage; or consider cardiac pacing. Hold all HTN medications for time being; will re-introduce medications if Bradycardia resolves; or if BP elevates 3. Left foot lesion: We'll order an x-ray to rule out bony pathology. 4. CBC, CMP, repeat A1c in a.m.
[2018-10-11 10:40] LABS: HEMOGLOBIN A1C 5.7 % (4.5-6.2)
[2018-10-12] MEDS: Acetaminophen 500 MG Tab PO PRN ×2 (02:52→09:27)
[2018-10-12] MEDS: Sodium Chloride 0.9% 1,000 ML IV SCH (05:15)
[2018-10-12 07:01] LABS: BLOOD UREA NITROGEN,BUN 9 mg/dL (7.0-18.0); CARBON DIOXIDE,CO2 28.6 mmol/L (21.0-32.0); CHLORIDE,CL 107 mmol/L (98-107); GLUCOSE RANDOM 92 mg/dL (74-106); POTASSIUM,K 3.2 mmol/L (3.5-5.1); SODIUM,NA 143 mmol/L (136-145)
[2018-10-12] MEDS ORDERED: Potassium Chloride 20 MEQ Tab.ER PO ONE ×2 (07:26→09:42)
[2018-10-12] MEDS ORDERED: Levothyroxine 50 MCG Tab PO SCH (07:30)
[2018-10-12] MEDS ORDERED: Aspirin 81 MG Tab.EC PO SCH (09:00)
--- NOTE | 2018-10-12 11:18 | PCM.DCSUM1 ---
<Darlene Mendenhall - Last Filed: 10/12/18 12:22> Discharge Summary - Hospital Course Free Text/Narrative:: discharge summary 1. admission date: October 11, 2018 2. Discharge date: October 12 3. Admission diagnoses Near syncopal episodes Past medical history: hypertension, osteoarthritis, anxiety 4. Discharge diagnoses Near syncopal episodes possibly secondary to bradycardia and poor nutrition hypokalemia: improving Past medical history: hypertension, osteoarthritis, anxiety 5.consultations None 6. Procedures None 7. Hospital course patient is a 63-year-old female with a past medical history of hypertension, osteoarthritis, anxiety: presenting yesterday with 5 short episodes of near syncope; did not complain of any chest pain, shortness of breath, diaphoresis, vertigo, headache, confusion. States she was at work and felt/experienced "tunnel vision"with room darkening with no other accompanying symptoms; resolved with stability/grabbing onto a chair/wall; returned home; proceeded to ED On admission: patient was bradycardic, home blood pressure medication temporarily discontinued. Repeat echo ordered. Patient endorses not eating anything significant for 3 days prior to admission; continued to take her blood pressure medication. Patient's vitals improved on stay, asymptomatic; no repeat syncopal episodes. Head CT negative for intracranial abnormalities. Left foot x- ray for incidental tender lump: showing soft tissue swelling/no acute bony pathology. Potassium low on day of discharge; repeated 80 mEq of KCL by mouth/ potassium and recheck BMP:3.9; within normal range. Discharge advised to discontinue beta ama; continue losartan. Advised to follow up with PCP within 1 week to discuss echo results and blood pressure medication. 8. Discharge condition: stable 9. Disposition: home 10. Discharge medicines: FLUoxetine HCl [Fluoxetine] 10 mg PO DAILY 07/31/15 [History] Levothyroxine [Synthroid] 50 mcg PO ACBREAKFAST 07/31/15 [History] Simvastatin [Zocor] 20 mg PO BEDTIME 07/31/15 [History] Aspirin [[place] Aspirin EC] 81 mg PO DAILY 10/01/16 [History] Losartan Potassium 50 mg PO DAILY 10/01/16 [History] Acetaminophen [Tylenol Extra Strength] 1,000 mg PO Q6H PRN tablet 10/12/18 [Rx] 11. Discharge instructions: advised to contact provider if fever, chills, body aches, chest pain, shortness of breath, repeat dizziness/tunnel vision or other new symptoms again develop 12. Advised to follow-up with PCP within one week for echo results and blood pressure medication readjustment if necessary. - Discharge Data Discharge Date: 10/12/18 Discharge Disposition: Home, Self-Care 01 Condition: Good - Patient Instructions Notify Provider of: Fever, Increased Pain, Swelling and Redness, Drainage, Nausea and/or Vomiting Other/Special Instructions: advise to notify provider if symptoms of fever, chills, headaches, chest pain, shortness of breath, dizziness, vertigo, tunnel vision develops or any other new symptoms against baseline are experienced. - Discharge Plan *PRESCRIPTION DRUG MONITORING PROGRAM REVIEWED*: No *COPY OF PRESCRIPTION DRUG MONITORING REPORT IN PATIENT ANUSHA: No Home Medications: Home Meds FLUoxetine HCl [Fluoxetine] 10 mg PO DAILY 07/31/15 [History] Levothyroxine [Synthroid] 50 mcg PO ACBREAKFAST 07/31/15 [History] Simvastatin [Zocor] 20 mg PO BEDTIME 07/31/15 [History] Aspirin [[place] Aspirin EC] 81 mg PO DAILY 10/01/16 [History] Losartan Potassium 50 mg PO DAILY 10/01/16 [History] Acetaminophen [Tylenol Extra Strength] 1,000 mg PO Q6H PRN tablet 10/12/18 [Rx] Patient Handouts: Near-Syncope, [id number] Referrals: [facility] [Outside] Vj Dial MD [Primary Care Provider] - 10/21/18 9:30 am - Discharge Summary/Plan Comment DC Time >30 min.: No - Patient Data Vitals - Most Recent: Last Vital Signs Temp 97.9 F 10/12/18 07:41 Pulse 62 10/12/18 07:41 Resp 14 10/12/18 07:41 BP 130/61 10/12/18 07:41 Pulse Ox 96 10/12/18 07:41 Orthostatic Blood Pressure [ 155/76 Standing] Orthostatic Blood Pressure [ 144/90 Sitting] Orthostatic Blood Pressure [ 137/66 Supine] Weight - Most Recent: 73.028 kg I&O - Last 24 hours: Intake & Output 10/11/18 10/12/18 10/12/18 22:59 06:59 14:59 Intake Total 1960 1359 Output Total 700 1150 Balance 1260 209 Lab Results - Last 24 hrs: Laboratory Results - last 24 hr 10/12/18 10/12/18 Range/Units 05:38 06:28 Sodium 143 (136-145) mmol/L Potassium 3.2 L (3.5-5.1) mmol/L Chloride 107 (98-107) mmol/L Carbon Dioxide 28.6 (21.0-32.0) mmol/L BUN 9 (7.0-18.0) mg/dL Creatinine 0.7 (0.6-1.0) mg/dL Est Cr Clr Drug Dosing 78.01 mL/min Estimated GFR (MDRD) > 60.0 ml/min Glucose 92 (74-106) mg/dL Calcium 8.0 L (8.5-10.1) mg/dL Magnesium 1.8 (1.8-2.4) mg/dL Total Bilirubin 0.4 (0.2-1.0) mg/dL AST 14 L (15-37) IU/L ALT 17 (14-63) IU/L Alkaline Phosphatase 67 (46-116) U/L Total Protein 5.5 L (6.4-8.2) g/dL Albumin 2.8 L (3.4-5.0) g/dL Globulin 2.7 (2.6-4.0) g/dL Albumin/Globulin Ratio 1.0 (0.9-1.6) Med Orders - Current: Current Medications Acetaminophen (Tylenol Extra Strength) 1,000 mg PO Q6H PRN PRN Reason: Headache/Pain Last Admin: 10/12/18 09:27 Dose: 1,000 mg Aspirin (Halfprin) 81 mg PO DAILY [facility] Last Admin: 10/12/18 08:13 Dose: 81 mg Fluoxetine HCl (Prozac) 10 mg PO DAILY [facility] Last Admin: 10/12/18 08:12 Dose: 10 mg Sodium Chloride (Normal Saline) 1,000 mls @ 125 mls/hr IV STAT [facility] Last Admin: 10/12/18 05:15 Dose: 125 mls/hr Levothyroxine Sodium (Synthroid) 50 mcg PO ACBREAKFAST [facility] Last Admin: 10/12/18 08:12 Dose: 50 mcg Discontinued Medications Potassium Chloride (Klor-Con M20) 40 meq PO ONETIME ONE Stop: 10/12/18 07:27 Last Admin: 10/12/18 08:13 Dose: 40 meq Potassium Chloride (Klor-Con M20) 40 meq PO ONETIME ONE Stop: 10/12/18 09:43 Last Admin: 10/12/18 10:56 Dose: 40 meq <John Ivy - Last Filed: 10/12/18 12:58> Discharge Summary - Hospital Course Free Text/Narrative:: I have seen and examined the patient independently of Dr. Abdirashid MD. I have reviewed and agree with the plan of care as outlined for this patient by him. I have discussed the case with him. Please see orders. - Patient Data Vitals - Most Recent: Last Vital Signs Temp 36.7 C 10/12/18 11:53 Pulse 57 L 10/12/18 11:53 Resp 16 10/12/18 11:53 BP 122/67 10/12/18 11:53 Pulse Ox 97 10/12/18 11:53 Orthostatic Blood Pressure [ 155/76 Standing] Orthostatic Blood Pressure [ 144/90 Sitting] Orthostatic Blood Pressure [ 137/66 Supine] I&O - Last 24 hours: Intake & Output 10/11/18 10/12/18 10/12/18 22:59 06:59 14:59 Intake Total 1960 1359 Output Total 700 1150 Balance 1260 209 Lab Results - Last 24 hrs: Laboratory Results - last 24 hr 10/12/18 10/12/18 10/12/18 Range/Units 05:38 06:28 11:23 Sodium 143 (136-145) mmol/L Potassium 3.2 L 3.9 (3.5-5.1) mmol/L Chloride 107 (98-107) mmol/L Carbon Dioxide 28.6 (21.0-32.0) mmol/L BUN 9 (7.0-18.0) mg/dL Creatinine 0.7 (0.6-1.0) mg/dL Est Cr Clr Drug Dosing 78.01 mL/min Estimated GFR (MDRD) > 60.0 ml/min Glucose 92 (74-106) mg/dL POC Glucose (60-110) mg/dL Calcium 8.0 L (8.5-10.1) mg/dL Magnesium 1.8 (1.8-2.4) mg/dL Total Bilirubin 0.4 (0.2-1.0) mg/dL AST 14 L (15-37) IU/L ALT 17 (14-63) IU/L Alkaline Phosphatase 67 (46-116) U/L Total Protein 5.5 L (6.4-8.2) g/dL Albumin 2.8 L (3.4-5.0) g/dL Globulin 2.7 (2.6-4.0) g/dL Albumin/Globulin Ratio 1.0 (0.9-1.6) 10/12/18 Range/Units 11:35 Sodium (136-145) mmol/L Potassium (3.5-5.1) mmol/L Chloride (98-107) mmol/L Carbon Dioxide (21.0-32.0) mmol/L BUN (7.0-18.0) mg/dL Creatinine (0.6-1.0) mg/dL Est Cr Clr Drug Dosing mL/min Estimated GFR (MDRD) ml/min Glucose (74-106) mg/dL POC Glucose 88 (60-110) mg/dL Calcium (8.5-10.1) mg/dL Magnesium (1.8-2.4) mg/dL Total Bilirubin (0.2-1.0) mg/dL AST (15-37) IU/L ALT (14-63) IU/L Alkaline Phosphatase (46-116) U/L Total Protein (6.4-8.2) g/dL Albumin (3.4-5.0) g/dL Globulin (2.6-4.0) g/dL Albumin/Globulin Ratio (0.9-1.6) Med Orders - Current: Current Medications Acetaminophen (Tylenol Extra Strength) 1,000 mg PO Q6H PRN PRN Reason: Headache/Pain Last Admin: 10/12/18 09:27 Dose: 1,000 mg Aspirin (Halfprin) 81 mg PO DAILY [facility] Last Admin: 10/12/18 08:13 Dose: 81 mg Fluoxetine HCl (Prozac) 10 mg PO DAILY [facility] Last Admin: 10/12/18 08:12 Dose: 10 mg Sodium Chloride (Normal Saline) 1,000 mls @ 125 mls/hr IV STAT [facility] Last Admin: 10/12/18 05:15 Dose: 125 mls/hr Levothyroxine Sodium (Synthroid) 50 mcg PO ACBREAKFAST JOANNA Last Admin: 10/12/18 08:12 Dose: 50 mcg Discontinued Medications Potassium Chloride (Klor-Con M20) 40 meq PO ONETIME ONE Stop: 10/12/18 07:27 Last Admin: 10/12/18 08:13 Dose: 40 meq Potassium Chloride (Klor-Con M20) 40 meq PO ONETIME ONE Stop: 10/12/18 09:43 Last Admin: 10/12/18 10:56 Dose: 40 meq
[2018-10-12 11:55] VITALS: BP 122/67
--- NOTE | 2018-10-12 15:14 | CR ---
INDICATION: Tender nodule TECHNIQUE: X-ray left foot, two views COMPARISON: None available FINDINGS: The alignment is normal. Negative for acute fracture or dislocation. There is a small calcaneal spur. No radiopaque foreign body is seen. IMPRESSION: Small calcaneal spur. Otherwise unremarkable left foot radiographs. Dictated by Rhonda Solares MD @ 10/12/2018 3:12:51 PM Dictated by: Rhonda Solares MD @ 10/12/2018 15:13:00 (Electronically Signed)
--- NOTE | 2018-10-14 15:16 | ECHO ---
The echocardiogram report can be seen in this patient's EMR (Electronic Medical Record) in the REPORTS section. The echocardiogram report has also been scanned into PACS and can be seen there as well. BILL
== END 2018-10-12 13:40 | disposition home or self-care (01) ==
LOC: MW.ED 07:04 → MW.MS 08:29
PROVIDERS: ADMIT Internal Medicine; ATTEND Internal Medicine
DX: R55 Syncope and collapse (principal); E87.6 Hypokalemia; I10 Essential (primary) hypertension; M19.90 Unspecified osteoarthritis, unspecified site; R00.1 Bradycardia, unspecified; E78.00 Pure hypercholesterolemia, unspecified; F32.9 Major depressive disorder, single episode, unspecified; E03.9 Hypothyroidism, unspecified; M81.0 Age-related osteoporosis without current pathological fracture; L98.9 Disorder of the skin and subcutaneous tissue, unspecified; Z88.5 Allergy status to narcotic agent; Z88.0 Allergy status to penicillin; Z79.899 Other long term (current) drug therapy; Z79.82 Long term (current) use of aspirin
CPT/HCPCS: 36415; 70450; 71045; 73620; 80053; 81003; 82962; 83036; 83735; 84132; 84484; 85025; 85610; 93005; 93306; 96360; 96361; 99285; A9270; G0378; J7040; 99284

== ENCOUNTER 2019-02-12 09:09 | Emergency (ER) | payer BC ==
[2019-02-12 09:24] VITALS: BP 158/59; PULSE 67
--- NOTE | 2019-02-12 10:15 | CR ---
INDICATION: Pain TECHNIQUE: Three views left ankle COMPARISON: None FINDINGS: Bones: Alignment is normal. No fractures. Plantar calcaneal spur. Joint spaces: Unremarkable. Soft tissues: Lateral ankle edema. IMPRESSION: Mild lateral ankle edema. Plantar calcaneal spur. Dictated by Ascencion Sánchez MD @ 02/12/2019 10:13:44 AM Dictated by: Ascencion Sánchez MD @ 02/12/2019 10:13:47 (Electronically Signed)
--- NOTE | 2019-02-12 10:17 | EDM.PDOC ---
ED HPI GENERAL MEDICAL PROBLEM - General Chief Complaint: Lower Extremity Injury/Pain Stated Complaint: LT FOOT INJURY Time Seen by Provider: 02/12/19 09:59 Source of Information: Reports: Patient History Limitations: Reports: No Limitations - History of Present Illness INITIAL COMMENTS - FREE TEXT/NARRATIVE: HISTORY AND PHYSICAL: History of present illness: Patient is a 63-year-old female who presents to the ED today with concern of left ankle injury and pain. Patient states 4 months ago she fell while at work and twisted her left ankle. Patient states since then she has noticed slight swelling of the left ankle but did not have pain until approximately 4 weeks ago. Patient states she has been having issues with arthritis in her left hip and noticed that she has been walking differently because of her hip. Patient states she is following with Dr. Dial in the clinic for her hip and saw him 2 weeks ago but did not mention her ankle thinking it was related to her "walking funny" with her hip. Patient denies any new trauma or injury. Patient denies fever, chills, chest pain, shortness of breath, or cough. Denies headache, neck stiff ness, change in vision, syncope, or near syncope. Denies nausea, vomiting, abdominal pain, diarrhea, constipation, or dysuria. Has not noted any blood in urine or stool. Patient has been eating and drinking appropriately. Review of systems: As per history of present illness and below otherwise all systems reviewed and negative. Past medical history: As per history of present illness and as reviewed below otherwise noncontributory. Surgical history: As per history of present illness and as reviewed below otherwise noncontributory. Social history: See social history for further information Family history: As per history of present illness and as reviewed below otherwise noncontributory. Physical exam: General: Patient is alert, oriented, and in no acute distress. Patient sitting comfortably on exam table. HEENT: Atraumatic, normocephalic, pupils equal and reactive bilaterally, negative for conjunctival pallor or scleral icterus, mucous membranes moist, TMs normal bilaterally, throat clear, neck supple, nontender, trachea midline. No drooling or trismus noted. No meningeal signs. No hot potato voice noted. Lungs: Clear to auscultation, breath sounds equal bilaterally, chest nontender. Heart: S1S2, regular rate and rhythm without overt murmur Abdomen: Soft, nondistended, nontender. Negative for masses or hepatosplenomegaly. Negative for costovertebral tenderness. Pelvis: Stable nontender. Genitourinary: Deferred. Rectal: Deferred. Skin: Intact, warm, dry. No lesions or rashes noted. Extremities: Negative for cords or calf pain. Neurovascular unremarkable. There is mild edema of the left ankle of both the medial and lateral malleolus with mild pain to palpation. There is also mild swelling on the proximal dorsum of the foot. No erythema or warmth of the left foot and ankle, or bilateral lower extremities. DP/PT pulses intact of left lower extremity with doppler and capillary refill less than 2 seconds. Neuro: Awake, alert, oriented. Cranial nerves II through XII unremarkable. Cerebellum unremarkable. Motor and sensory unremarkable throughout. Exam nonfocal. Notes: Discussed importance for follow-up with an orthopedic provider and primary care provider. Patient has been referred to the Ortho clinic. Voices understanding and is agreeable to plan of care. Denies any further questions or concerns at this time. Diagnostics: Foot and ankle XR Therapeutics: Walking boot Prescription: None Impression: Left ankle pain Plan: 1. Rest, ice, elevate the affected extremity. You can apply ice 15 minutes on, 15 minutes off. 2. Tylenol and/or Ibuprofen as directed for pain management or discomfort. 3. Follow up with the Orthopedic provider and primary care provider as discussed. Return to the ED as needed and as discussed. Definitive disposition and diagnosis as appropriate pending reevaluation and review of above. left ankle Pain Score (Numeric/FACES): 9 - Related Data Allergies Allergy/AdvReac Type Severity Reaction Status Date / Time codeine Allergy Nausea Verified 10/11/18 09:30 morphine Allergy Nausea Verified 10/11/18 09:30 Penicillins Allergy Rash Verified 10/11/18 09:30 Home Meds: Home Meds FLUoxetine HCl [Fluoxetine] 10 mg PO DAILY 07/31/15 [History] Levothyroxine [Synthroid] 50 mcg PO ACBREAKFAST 07/31/15 [History] Simvastatin [Zocor] 20 mg PO BEDTIME 07/31/15 [History] Aspirin [Harding Aspirin EC] 81 mg PO DAILY 10/01/16 [History] Losartan Potassium 50 mg PO DAILY 10/01/16 [History] Acetaminophen [Tylenol Extra Strength] 1,000 mg PO Q6H PRN tablet 10/12/18 [Rx] Past Medical History HEENT History: Reports: Other (See Below) Other HEENT History: wears glasses, Full Dentures Cardiovascular History: Reports: Arrhythmia, High Cholesterol, Hypertension Respiratory History: Reports: None Gastrointestinal History: Reports: None Genitourinary History: Reports: None AURICULAR THERAPIST History: Reports: Musculoskeletal History: Reports: Osteoporosis Neurological History: Reports: None Psychiatric History: Reports: Anxiety, Depression, PTSD, Other (See Below) Endocrine/Metabolic History: Reports: Hypothyroidism Hematologic History: Reports: None Immunologic History: Reports: None Oncologic (Cancer) History: Reports: None Dermatologic History: Reports: None - Infectious Disease History Infectious Disease History: Reports: None - Past Surgical History Head Surgeries/Procedures: Reports: None Cardiovascular Surgical History: Reports: None Respiratory Surgical History: Reports: None GI Surgical History: Reports: None Female Surgical History: Reports: Breast Biopsy Endocrine Surgical History: Reports: None Neurological Surgical History: Reports: None Musculoskeletal Surgical History: Reports: Carpal Tunnel, Shoulder Surgery Other Musculoskeletal Surgeries/Procedures:: left rotator cuff repair Oncologic Surgical History: Reports: None Dermatological Surgical History: Reports: None Social & Family History - Family History Family Medical History: Noncontributory - Tobacco Use Smoking Status *Q: Never Smoker - Caffeine Use Caffeine Use: Reports: Soda, Tea Caffeine Use Comment: Coca- cola - Recreational Drug Use Recreational Drug Use: No Review of Systems - Review of Systems Review Of Systems: Comprehensive ROS is negative, except as noted in HPI. ED EXAM, GENERAL - Physical Exam Exam: See Below (see dictation) Course - Vital Signs Last Recorded V/S: Last Vital Signs Temp 97.1 F 02/12/19 09:22 Pulse 67 02/12/19 09:22 Resp 18 02/12/19 09:22 BP 158/59 H 02/12/19 09:22 Pulse Ox 95 02/12/19 09:22 - Orders/Labs/Meds Orders: Active Orders 24 hr Category Date Time Status Communication Order [RC] STAT Care 02/12/19 10:12 Active DME for Discharge [COMM] Stat Oth 02/12/19 11:22 Ordered Labs: Laboratory Tests 02/12/19 Range/Units 09:44 Uric Acid 4.6 (2.6-7.2) mg/dL Departure - Departure Time of Disposition: 11:23 Disposition: Home, Self-Care 01 Clinical Impression: Ankle pain Qualifiers: Chronicity: unspecified Laterality: left Qualified Code(s): M25.572 - Pain in left ankle and joints of left foot - Discharge Information Referrals: Vj Dial MD [Primary Care Provider] - Forms: ED Department Discharge Additional Instructions: The following information is given to patients seen in the emergency department who are being discharged to home. This information is to outline your options for follow-up care. We provide all patients seen in our emergency department with a follow-up referral. The need for follow-up, as well as the timing and circumstances, are variable depending upon the specifics of your emergency department visit. If you don't have a primary care physician on staff, we will provide you with a referral. We always advise you to contact your personal physician following an emergency department visit to inform them of the circumstance of the visit and for follow-up with them and/or the need for any referrals to a consulting specialist. The emergency department will also refer you to a specialist when appropriate. This referral assures that you have the opportunity for follow-up care with a specialist. All of these measure are taken in an effort to provide you with optimal care, which includes your follow-up. Under all circumstances we always encourage you to contact your private physician who remains a resource for coordinating your care. When calling for follow-up care, please make the office aware that this follow-up is from your recent emergency room visit. If for any reason you are refused follow-up, please contact the [facility] at and asked to speak to the emergency department charge nurse. [facility] [address] [place] [id number] [address] [facility] Professional [facility] [address] [place] [address], [address] [place] [address] 1. Rest, ice, elevate the affected extremity. You can apply ice 15 minutes on, 15 minutes off. 2. Tylenol and/or Ibuprofen as directed for pain management or discomfort. 3. Follow up with the Orthopedic provider and primary care provider as discussed. Return to the ED as needed and as discussed. Sepsis Event Note - Evaluation Sepsis Screening Result: No Definite Risk - Focused Exam Vital Signs: Vital Signs Temp Pulse Resp BP Pulse Ox 02/12/19 09:22 97.1 F 67 18 158/59 H 95 Date Exam was Performed: 02/12/19 Time Exam was Performed: 11:22 - My Orders Last 24 Hours: My Active Orders 02/12/19 10:12 Communication Order [RC] STAT 02/12/19 11:22 DME for Discharge [COMM] Stat - Assessment/Plan Last 24 Hours: My Active Orders 02/12/19 10:12 Communication Order [RC] STAT 02/12/19 11:22 DME for Discharge [COMM] Stat
--- NOTE | 2019-02-12 11:18 | CR ---
INDICATION: Pain. COMPARISON: 10/11/2018. TECHNIQUE: Two views of the left foot. FINDINGS AND IMPRESSION: No definite acute fracture or dislocation. Bony mineralization is normal. Small calcaneal well defined spur. Dictated by David Gerardo MD @ Feb 12 2019 11:05AM (Electronically Signed)
== END 2019-02-12 11:33 | disposition home or self-care (01) ==
LOC: MW.ED 09:09
DX: M25.572 Pain in left ankle and joints of left foot (principal); I10 Essential (primary) hypertension; E78.00 Pure hypercholesterolemia, unspecified; F41.9 Anxiety disorder, unspecified; F32.9 Major depressive disorder, single episode, unspecified; E03.9 Hypothyroidism, unspecified; Z88.5 Allergy status to narcotic agent; Z88.0 Allergy status to penicillin; Z79.899 Other long term (current) drug therapy; Z79.82 Long term (current) use of aspirin
CPT/HCPCS: 36415; 73610-26-LT; 73610-LT; 73620-26-LT; 73620-LT; 84550; 99283; 99283-25

== ENCOUNTER 2021-02-23 07:22 | Emergency (ER) | payer BC ==
[2021-02-23 08:41] LABS: CORONAVIRUS COVID-19 NAA POSITIVE (NEGATIVE); INFLUENZA A NAA NEGATIVE (NEGATIVE); INFLUENZA B NAA NEGATIVE (NEGATIVE)
[2021-02-23 09:07] VITALS: BP 129/66; PULSE 60
== END 2021-02-23 09:07 | disposition home or self-care (01) ==
LOC: MW.ED 07:22
DX: U07.1 COVID-19 (principal); E78.00 Pure hypercholesterolemia, unspecified; I10 Essential (primary) hypertension; Z88.5 Allergy status to narcotic agent; Z88.0 Allergy status to penicillin; Z79.899 Other long term (current) drug therapy
CPT/HCPCS: 0240U; 99283

== ENCOUNTER 2022-03-17 07:19 | Emergency (ER) | payer BC ==
[2022-03-17] MEDS ORDERED: Aspirin 81 MG Tab.Chew PO ONE (07:46)
[2022-03-17 08:50] LABS: CARBON DIOXIDE,CO2 27.1 mmol/L (21.0-32.0); POTASSIUM,K 4.6 mmol/L (3.5-5.1)
[2022-03-17 09:26] VITALS: BP 153/72; PULSE 56
== END 2022-03-17 09:23 | disposition home or self-care (01) ==
LOC: MW.ED 07:19
DX: R07.89 Other chest pain (principal); E78.00 Pure hypercholesterolemia, unspecified; I10 Essential (primary) hypertension; E03.9 Hypothyroidism, unspecified; Z86.16 Personal history of COVID-19; Z88.5 Allergy status to narcotic agent; Z88.0 Allergy status to penicillin; Z79.82 Long term (current) use of aspirin; Z79.899 Other long term (current) drug therapy
CPT/HCPCS: 36415; 71045; 80048; 84484; 85025; 93005; 99285; A9270; 93010; 99283

== ENCOUNTER 2023-02-09 12:49 | Emergency (ER) | payer BC ==
[2023-02-09] MEDS ORDERED: predniSONE 20 MG Tab PO ONE (15:25)
[2023-02-09] MEDS ORDERED: Ibuprofen 600 MG Tab PO ONE (15:26)
[2023-02-09 15:37] VITALS: BP 176/91; PULSE 55
== END 2023-02-09 16:11 | disposition home or self-care (01) ==
LOC: MW.ED 12:49
DX: S99.922A Unspecified injury of left foot, initial encounter (principal); I10 Essential (primary) hypertension; E78.00 Pure hypercholesterolemia, unspecified; E03.9 Hypothyroidism, unspecified; Z86.16 Personal history of COVID-19; Z88.5 Allergy status to narcotic agent; Z88.0 Allergy status to penicillin; Z79.899 Other long term (current) drug therapy; W01.0XXA Fall on same level from slipping, tripping and stumbling without subsequent striking against object, initial encounter
CPT/HCPCS: 73610; 73620; 99283; A9270

== ENCOUNTER 2023-09-28 08:23 | Day surgery (SDC) | payer MEDICARE, OTHER ==
[2023-09-28] MEDS: Lactated Ringers 1,000 ML IV SCH (08:42)
[2023-09-28] MEDS ORDERED: Lidocaine 2% 5 ML SDV ONE (09:51)
[2023-09-28] MEDS ORDERED: Propofol 200 MG/20 ML SDV ONE (09:52)
[2023-09-28] MEDS ORDERED: Lactated Ringers 1,000 ML IV SCH (10:45)
[2023-09-28 13:25] VITALS: BP 135/66; PULSE 58
== END 2023-09-28 11:12 | disposition home or self-care (01) ==
LOC: MW.SDS 08:23
PROVIDERS: ATTEND Surgery
DX: Z12.11 Encounter for screening for malignant neoplasm of colon (principal); I10 Essential (primary) hypertension; E78.5 Hyperlipidemia, unspecified; E03.9 Hypothyroidism, unspecified; F32.A Depression, unspecified; Z79.82 Long term (current) use of aspirin; Z79.890 Hormone replacement therapy; Z79.899 Other long term (current) drug therapy; Z88.0 Allergy status to penicillin; Z88.5 Allergy status to narcotic agent; Z86.010 Personal history of colon polyps
CPT/HCPCS: G0105; J2704; J7120; J3490

== ENCOUNTER 2024-05-17 14:09 | Emergency (ER) | payer MEDICARE, OTHER ==
[2024-05-17] MEDS: Bupivacaine 0.5% 10 ML SDV INJECT ONE (15:21)
[2024-05-17 17:17] VITALS: BP 176/90; PULSE 67
== END 2024-05-17 17:20 | disposition home or self-care (01) ==
LOC: MW.ED 14:09
DX: S52.501A Unspecified fracture of the lower end of right radius, initial encounter for closed fracture (principal); S52.611A Displaced fracture of right ulna styloid process, initial encounter for closed fracture; Z75.3 Unavailability and inaccessibility of health-care facilities; W19.XXXA Unspecified fall, initial encounter; Y92.89 Other specified places as the place of occurrence of the external cause; Y99.0 Civilian activity done for income or pay
CPT/HCPCS: 25605; 73110; 99283; J0665; 99282

== ENCOUNTER → 2024-05-25 | Day surgery (SDC) | payer MEDICARE, OTHER ==
[~2024-05-25] MED LIST: Albuterol 0.083% 2.5 MG/3 ML Neb Soln NEB PRN; Bupivacaine 0.25% 30 ML SDV ONE; Dexamethasone 4 MG/ML 5 ML MDV ONE; HYDROmorphone 1 MG/ML Syringe IVPUSH PRN; Ketorolac 30 MG/ML SDV ONE; Lidocaine 2% 5 ML SDV ONE; Metoclopramide 10 MG/2 ML SDV IVPUSH PRN; Midazolam 1 MG/ML 2 ML SDV ONE; Morphine 2 MG/ML SYRINGE IVPUSH PRN; Naloxone 0.4 MG/ML SDV IVPUSH PRN; Ondansetron 4 MG/2 ML SDV IVPUSH PRN; Ondansetron 4 MG/2 ML SDV ONE; Phenylephrine HCl In 0.9% NaCl 1 MG/10 ML Syringe IVPUSH PRN; Propofol 200 MG/20 ML SDV ONE; Ropivacaine 0.5% 5 MG/ML 30 ML SDV ONE; ceFAZolin 1 GM Vial ONE; ceFAZolin 2 GM in Sodium Chloride 0.9% 50 ML IV ONE; dexmedeTOMIDine HCl 200 MCG/2 ML SDV ONE; ePHEDrine 50 MG/ML SDV ONE; fentaNYL 100 MCG/2 ML SDV ONE; fentaNYL 50 MCG/ML SDV IVPUSH PRN
[2024-05-25] MEDS: Lactated Ringers 1,000 ML IV SCH (10:20)
[2024-05-25 14:24] VITALS: BP 137/61; PULSE 62
== END | disposition home or self-care (01) ==
LOC: MW.SDS 09:54
PROVIDERS: ATTEND Orthopaedic Surgery
DX: S52.551A Other extraarticular fracture of lower end of right radius, initial encounter for closed fracture (principal); I10 Essential (primary) hypertension; E03.9 Hypothyroidism, unspecified; E78.00 Pure hypercholesterolemia, unspecified; F32.A Depression, unspecified; Z79.890 Hormone replacement therapy; Z79.899 Other long term (current) drug therapy; Z88.0 Allergy status to penicillin; Z88.5 Allergy status to narcotic agent; X58.XXXA Exposure to other specified factors, initial encounter
CPT/HCPCS: 25607; 64415; 76000; J0665; J0690; J1100; J1885; J2003; J2250; J2405; J2704; J2795; J3010; J7120; 01820; C1713; J3490